=== PATIENT | male | born 1930 | race Two or more races ===

== ENCOUNTER 2017-01-24 13:06 | Emergency (ER) | payer MEDICAID, OTHER ==
[~2017-01-24] VITALS: Ht 142.2 cm; Wt 53.5 kg
[2017-01-24 15:35] VITALS: BP 122/66
[2017-01-24] MEDS ORDERED: SODIUM CHLORIDE 0.9% 1,000 ML IV ONE (16:15)
[2017-01-24] MEDS ORDERED: InsuLIN REG 1unit/0.01ml Soln (100units/ml) SC ONE (16:15)
[2017-01-24] MEDS ORDERED: ACETAMINOPHEN 500 MG TAB PO ONE ×2 (17:10→17:30)
== END 2017-01-24 17:59 | disposition home or self-care (01) ==
LOC: ER 13:15
DX: E11.65 Type 2 diabetes mellitus with hyperglycemia (principal); Z91.14 Patient's other noncompliance with medication regimen
CPT/HCPCS: 82962; 96360; 96372; 99284; J1815; J7030

== ENCOUNTER 2017-01-31 15:37 | Inpatient (IN) | payer MEDICAID ==
[~2017-01-31] VITALS: Ht 144.8 cm; Wt 52.6 kg
[2017-01-31 17:12] LABS: Basophils # (auto) 0 uL; Basophils % (auto) 0.3 % (0.0-2.0); Eosinophils # (auto) 0 uL; Eosinophils % (auto) 0.3 % (0.0-7.0); Hemoglobin 14.1 g/dL (13.5-17.5); Lymphocytes # (auto) 0.5 uL; Lymphocytes % (auto) 9.2 % (10.0-50.0); Mean Corpuscular Hemoglobin 33.3 pg (28.0-32.0); Mean Corpuscular Hgb Conc. 34.5 g/dL (32.0-36.0); Mean Corpuscular Volume 96.6 fL (80.0-100.0); Mean Platelet Volume 7.4 fL (7.4-10.4); Monocytes # (auto) 0.1 uL; Monocytes % (auto) 1.8 % (0.0-12.0); Neutrophils % (auto) 88.4 % (37.0-80.0); Platelet Count (auto) 189 10^3/uL (140-450); Red Cell Distribution Width 12.6 % (11.6-16.0); White Blood Cell 5.7 10^3/uL (4.4-10.8)
[2017-01-31 17:28] LABS: Albumin 3.5 g/dL (3.4-5.0); Anion Gap 15 (5-15); Blood Urea Nitrogen 13 mg/dL (7-18); Calcium 8.9 mg/dL (8.5-10.1); Carbon Dioxide 19 mmol/L (21-32); Chloride 99 mmol/L (98-107); Glucose 332 mg/dL (74-106); Magnesium 1.7 mg/dL (1.6-2.6); Potassium 4.1 mmol/L (3.5-5.1); Sodium 133 mmol/L (136-145)
[2017-01-31 17:30] LABS: Aspartate Aminotransferase 219 U/L (15-37); BUN/Creatinine Ratio 9.6; GFR African American 65 mL/min; GFR Non-African American 53 mL/min
[2017-01-31 17:35] LABS: Alkaline Phosphatase 324 U/L (45-117); Bilirubin, Total 1.9 mg/dL (0.2-1.0); Total Protein 8.2 g/dL (6.4-8.2)
[2017-01-31 17:36] LABS: REFLEX LACTIC ACID YES OR NO YES
[2017-01-31] MEDS ORDERED: SODIUM CHLORIDE 0.9% 1,000 ML IV ONE ×3 (20:11→20:15)
[2017-01-31] MEDS ORDERED: cefTRIAXone 1GM/50ML D5W 50 ML IV ONE (20:15)
[2017-01-31 20:48] LABS: B-Type Natriuretic Peptide 32.45 pg/mL (0-100)
[2017-01-31 20:54] LABS: Temperature: 23.9 C (20.0-25.0)
[2017-01-31] MEDS ORDERED: METF-371 PO (20:59)
[2017-01-31] MEDS ORDERED: ACAR50TA9 PO (20:59)
[2017-01-31 21:11] LABS: INR 1.06 (0.9-1.15); Partial Thromboplastin Time 25.2 sec (22.64-33.71); Prothrombin Time 11.6 sec (9.37-12.3)
[2017-01-31] MEDS ORDERED: LORazepam 0.5 MG TAB PO PRN (22:30)
[2017-01-31] MEDS ORDERED: ACETAMINOPHEN 500 MG TAB PO PRN (22:30)
[2017-01-31] MEDS ORDERED: ONDANSETRON HCL 4 MG/2 ML VIAL IV PRN (22:30)
[2017-01-31] MEDS ORDERED: DEXTROSE (50%) 50ML SYRG IV PRN (22:30)
[2017-01-31] MEDS ORDERED: HYDROcodone-ACET 5/325MG TAB PO PRN (22:30)
[2017-01-31] MEDS ORDERED: NITROGLYCERIN 0.4 MG SL TAB SL PRN (22:30)
[2017-01-31] MEDS: SODIUM CHLORIDE 0.9% 1,000 ML IV SCH (22:30)
[2017-01-31] MEDS ORDERED: MORPHINE SULF INJ 2 MG/ML SYRINGE 1ML IV PRN ×2 (22:30)
[2017-01-31 22:53] LABS: Urine RBC None Seen /hpf (0 - 3)
[2017-01-31 22:56] LABS: Cholesterol 186 mg/dL (< 200); HDL Cholesterol 8 mg/dL (40-59); Triglycerides 475 mg/dL (< 150)
[2017-01-31 22:59] LABS: Urine Bilirubin Negative (Negative); Urine Blood Negative /uL (Negative); Urine Color Yellow (Yellow); Urine Glucose 4+ mg/dL (Normal); Urine Hyaline Cast FEW /lpf (0 - 2); Urine Ketone Negative (Negative); Urine Nitrite Negative (Negative); Urine Squamous Epithelial Cell FEW /hpf (<5); Urine Urobilinogen Normal (Negative)
[2017-01-31] MEDS ORDERED: PANTOPRAZOLE 40 MG/10 ML VIAL IV ONE (23:00)
[2017-02-01] VITALS (9 sets, daily range): BP systolic 83–91; BP diastolic 34–55
[2017-02-01] MEDS: PIPERACILLIN-TAZOB 3.375GM 100 ML IV SCH ×5 (00:21→23:50)
[2017-02-01] MEDS: ACCU-CHEK COMFORT CURVE STRIP VI SCH ×4 (06:43→22:28)
[2017-02-01] MEDS: InsuLIN REG 1unit/0.01ml Soln (100units/ml) SC SCH ×4 (06:44→22:00)
[2017-02-01 07:03] LABS: Basophils # (auto) 0 uL; Basophils % (auto) 0.1 % (0.0-2.0); Eosinophils # (auto) 0 uL; Eosinophils % (auto) 0.5 % (0.0-7.0); Hematocrit 32.2 % (41.0-53.0); Hemoglobin 11.5 g/dL (13.5-17.5); Lymphocytes # (auto) 0.7 uL; Mean Corpuscular Hemoglobin 34.3 pg (28.0-32.0); Mean Corpuscular Hgb Conc. 35.8 g/dL (32.0-36.0); Mean Corpuscular Volume 95.8 fL (80.0-100.0); Mean Platelet Volume 7.9 fL (7.4-10.4); Monocytes # (auto) 0.2 uL; Monocytes % (auto) 2.6 % (0.0-12.0); Neutrophils % (auto) 86.8 % (37.0-80.0); Nucleated Red Blood Cells % 0.1 %; Platelet Count (auto) 130 10^3/uL (140-450); Red Cell Distribution Width 12.5 % (11.6-16.0)
[2017-02-01 07:05] LABS: Potassium 4.6 mmol/L (3.5-5.1)
[2017-02-01 07:10] LABS: Albumin 2.6 g/dL (3.4-5.0); BUN/Creatinine Ratio 12.7; Calcium 7.8 mg/dL (8.5-10.1)
[2017-02-01 07:23] LABS: Bilirubin, Total 1.6 mg/dL (0.2-1.0); Total Protein 6.2 g/dL (6.4-8.2)
[2017-02-01] MEDS: PANTOPRAZOLE 40 MG/10 ML VIAL IV SCH (09:57)
[2017-02-01] MEDS: SODIUM CHLORIDE 0.9% 1,000 ML IV SCH (11:50)
[2017-02-01] MEDS ORDERED: IOHEXOL 350 MG/ML 100ML IJ ONE (15:59)
[2017-02-02] MEDS: SODIUM CHLORIDE 0.9% 1,000 ML IV SCH ×2 (01:10→14:30)
[2017-02-02 04:25] LABS: Basophils # (auto) 0 uL; Basophils % (auto) 0.3 % (0.0-2.0); Eosinophils # (auto) 0.2 uL; Eosinophils % (auto) 4.1 % (0.0-7.0); Hematocrit 33.7 % (41.0-53.0); Hemoglobin 11.6 g/dL (13.5-17.5); Lymphocytes % (auto) 18.8 % (10.0-50.0); Mean Corpuscular Hemoglobin 33.4 pg (28.0-32.0); Mean Corpuscular Hgb Conc. 34.4 g/dL (32.0-36.0); Mean Corpuscular Volume 96.9 fL (80.0-100.0); Mean Platelet Volume 7.9 fL (7.4-10.4); Monocytes # (auto) 0.3 uL; Monocytes % (auto) 6.5 % (0.0-12.0); Neutrophils # (auto) 3.6 uL; Neutrophils % (auto) 70.3 % (37.0-80.0); Platelet Count (auto) 114 10^3/uL (140-450); Red Cell Distribution Width 13.1 % (11.6-16.0); White Blood Cell 5.1 10^3/uL (4.4-10.8)
[2017-02-02 04:37] LABS: Albumin 2.4 g/dL (3.4-5.0); BUN/Creatinine Ratio 16.5; Bilirubin, Total 1.7 mg/dL (0.2-1.0); Calcium 7.9 mg/dL (8.5-10.1); Total Protein 6.2 g/dL (6.4-8.2)
[2017-02-02 05:00] VITALS: BP 106/57
[2017-02-02] MEDS: PIPERACILLIN-TAZOB 3.375GM 100 ML IV SCH ×3 (05:35→18:30)
[2017-02-02] MEDS: ACCU-CHEK COMFORT CURVE STRIP VI SCH ×4 (06:38→22:17)
[2017-02-02] MEDS: InsuLIN REG 1unit/0.01ml Soln (100units/ml) SC SCH ×4 (06:38→22:28)
[2017-02-02 08:00] VITALS: BP 114/58
[2017-02-02 09:21] VITALS: BP 114/55
[2017-02-02] MEDS: PANTOPRAZOLE 40 MG/10 ML VIAL IV SCH (10:08)
[2017-02-02] MEDS ORDERED: ADENOSINE 45 MG in GIVE UN-DILUTED 0 ML IV ONE (10:45)
[2017-02-02 17:34] VITALS: BP 112/55
[2017-02-02 20:00] VITALS: BP 132/61
[2017-02-02 22:45] VITALS: BP 132/61
[2017-02-03] MEDS: PIPERACILLIN-TAZOB 3.375GM 100 ML IV SCH ×5 (00:20→23:46)
[2017-02-03] MEDS: SODIUM CHLORIDE 0.9% 1,000 ML IV SCH ×2 (03:50→17:34)
[2017-02-03 05:49] VITALS: BP 140/57
[2017-02-03] MEDS: ACCU-CHEK COMFORT CURVE STRIP VI SCH ×4 (06:21→22:00)
[2017-02-03 06:40] LABS: Potassium 3.8 mmol/L (3.5-5.1)
[2017-02-03] MEDS: InsuLIN REG 1unit/0.01ml Soln (100units/ml) SC SCH ×3 (06:43→17:00)
[2017-02-03 06:52] LABS: Albumin 2.6 g/dL (3.4-5.0); BUN/Creatinine Ratio 13.6; Bilirubin, Total 1.1 mg/dL (0.2-1.0); Calcium 8.4 mg/dL (8.5-10.1); Total Protein 6.8 g/dL (6.4-8.2)
[2017-02-03 09:22] VITALS: BP 134/61
[2017-02-03] MEDS: PANTOPRAZOLE 40 MG/10 ML VIAL IV SCH (10:48)
[2017-02-03] MEDS ORDERED: DEXTROSE (50%) 50ML SYRG IV PRN (11:00)
[2017-02-03 12:41] VITALS: BP 137/68
[2017-02-03 16:39] VITALS: BP 142/67
[2017-02-03 22:00] VITALS: BP_SYST 117; BP_SYST 147; BP_DIAS 63; BP_DIAS 70
[2017-02-03] MEDS ORDERED: InsuLIN REG 1unit/0.01ml Soln (100units/ml) SC SCH ×2 (22:00)
[2017-02-03] MEDS ORDERED: INSULIN DETEMIR(LEVEMIR) 1unit/0.01ml Soln (100units/ml) SC SCH (22:00)
[2017-02-04 05:00] VITALS: BP 109/67
[2017-02-04 05:06] LABS: Ceruloplasmin 20.4 mg/dL (16.0-31.0)
[2017-02-04] MEDS: PIPERACILLIN-TAZOB 3.375GM 100 ML IV SCH ×2 (06:03→12:15)
[2017-02-04] MEDS: InsuLIN REG 1unit/0.01ml Soln (100units/ml) SC SCH ×2 (06:04→11:53)
[2017-02-04] MEDS: ACCU-CHEK COMFORT CURVE STRIP VI SCH ×2 (06:05→11:53)
[2017-02-04 06:39] LABS: Albumin 2.7 g/dL (3.4-5.0); BUN/Creatinine Ratio 14.9; Bilirubin, Total 0.8 mg/dL (0.2-1.0); Calcium 8.3 mg/dL (8.5-10.1); Potassium 3.5 mmol/L (3.5-5.1); Total Protein 7.2 g/dL (6.4-8.2)
[2017-02-04 09:08] VITALS: BP 110/69
[2017-02-04] MEDS: SODIUM CHLORIDE 0.9% 1,000 ML IV SCH (10:26)
[2017-02-04] MEDS: PANTOPRAZOLE 40 MG/10 ML VIAL IV SCH (10:26)
[2017-02-04 12:48] VITALS: BP 130/70
== END 2017-02-04 16:30 | disposition home or self-care (01) | DRG 720 ==
LOC: ER 15:43 → TELE 15:44 → TELE-WESTW 02-01 01:50
PROVIDERS: ADMIT Nurse Practitioner Family; ATTEND Internal Medicine
DX: A41.51 Sepsis due to Escherichia coli [E. coli] (principal); N17.9 Acute kidney failure, unspecified; E44.0 Moderate protein-calorie malnutrition; I11.0 Hypertensive heart disease with heart failure; J18.9 Pneumonia, unspecified organism; E11.65 Type 2 diabetes mellitus with hyperglycemia; I50.9 Heart failure, unspecified; K70.9 Alcoholic liver disease, unspecified; K81.2 Acute cholecystitis with chronic cholecystitis; Z79.84 Long term (current) use of oral hypoglycemic drugs; Z79.899 Other long term (current) drug therapy; Z87.891 Personal history of nicotine dependence; Z68.25 Body mass index [BMI] 25.0-25.9, adult
CPT/HCPCS: 36415; 71020; 71275; 74176; 76705; 78226; 78452; 80053; 80061; 80074; 81001; 82390; 82550; 82962; 83036; 83540; 83550; 83605; 83690; 83735; 83880; 84484; 85025; 85379; 85610; 85652; 85730; 86038; 86141; 87040; 87077; 87186; 93005; 93017; 96361; 96365; 96375; C9113; J0153; J0696; J1815; J2543